=== PATIENT | female | born 1965 | race Caucasian/White ===

== ENCOUNTER 2018-10-18 16:00 | Inpatient (IN) | payer SELFPAY ==
[~2018-10-18] VITALS: Ht 147.3 cm; Wt 40.3 kg
[2018-10-18] MEDS ORDERED: normal saline 1000ML IV soln IVB ONE (20:30)
[2018-10-18] MEDS ORDERED: gabapentin 400mg capsule PO ONE (20:30)
[2018-10-18] MEDS ORDERED: morphine 4 MG/ML inj SYRINge IV ONE (21:20)
[2018-10-18 21:24] LABS: BASOPHILS % (AUTO) 0.1 % (0-1); EOSINOPHILS # (AUTO) 0.1 X10'3 (0-0.9); EOSINOPHILS % (AUTO) 1.6 % (0-6); HEMATOCRIT 39.9 % (35.0-45.0); HEMOGLOBIN 13.5 g/dl (12.0-16.0); LYMPHOCYTES # (AUTO) 2.5 X10'3 (1.1-4.8); LYMPHOCYTES % (AUTO) 33.7 % (21-51); MEAN CORPUSCULAR HEMOGLOBIN 28.6 PG (27.0-31.0); MEAN CORPUSCULAR HGB CONC 33.9 % (33.0-36.5); MEAN CORPUSCULAR VOLUME 84.4 FL (78-98); MONOCYTES # (AUTO) 0.5 X10'3 (0-0.9); MONOCYTES % (AUTO) 6.4 % (2-12); NEUTROPHILS # (AUTO) 4.4 X10'3 (1.8-7.7); NEUTROPHILS % (AUTO) 58.2 % (42-75); PLATELET COUNT 346 X10'3 (140-440); RED BLOOD COUNT 4.72 X10'6 (4.20-5.60); RED CELL DISTRIBUTION WIDTH 12.9 % (11.5-14.5); WHITE BLOOD COUNT 7.5 X10'3 (4.5-11.0)
[2018-10-18 21:43] LABS: ALANINE AMINOTRANSFERASE 34 U/L (12-78); ALBUMIN 4.2 G/DL (3.4-5.0); ALKALINE PHOSPHATASE 111 IU/L (46-116); ANION GAP 14 (8-16); ASPARTATE AMINO TRANSFERASE 19 U/L (10-37); BILIRUBIN,TOTAL 0.4 MG/DL (0.1-1.0); BLOOD UREA NITROGEN 12 MG/DL (7-18); BUN/CREATININE RATIO 22.6 (6.6-38.0); CALCIUM 9.3 MG/DL (8.5-10.1); CHLORIDE 104 MMOL/L (99-107); CREATININE 0.53 MG/DL (0.40-0.90); GLUCOSE 82 MG/DL (70-104); POTASSIUM 3.4 MMOL/L (3.5-5.1); SODIUM 142 MMOL/L (135-145); TOTAL CARBON DIOXIDE 23.8 MMOL/L (24-32); TOTAL PROTEIN 8.4 G/DL (6.4-8.2); eGFR > 90 ML/MIN
--- NOTE | 2018-10-18 22:14 | NUR ---
Patient's pain is nearly gone and patient reports feeling quite comfortable. Dr. Lowery notified of update and I spoke to her regarding the patient's blood pressure. Patient's blood pressure is always high and she took her medication today, which she cannot remember the name for. Dr. Lowery states we will monitor and wait for results of CT.
[2018-10-18] MEDS ORDERED: iohexol 350MG/ML 100ml bottle IV ONE (22:16)
[2018-10-18] MEDS ORDERED: GABA-532 PO (22:25)
[2018-10-19] MEDS ORDERED: piperacillin/tazo 3.375gm/50ml 50 ML IV ONE (01:00)
[2018-10-19] MEDS ORDERED: LISI-600 PO (01:02)
[2018-10-19] MEDS ORDERED: morphine 4 MG/ML inj SYRINge IV ONE ×2 (01:10→11:50)
[2018-10-19] MEDS ORDERED: potassium cl 20mEq in 1/2 NS 1,000 ML IV SCH (01:54)
[2018-10-19] MEDS ORDERED: diphenhydrAMINE 50 mg/ml inj IV PRN (01:55)
[2018-10-19] MEDS ORDERED: diphenhydrAMINE 25mg capsule PO PRN (01:55)
[2018-10-19] MEDS ORDERED: mag hydrox/Alum hydrox/simeth 30ml oral suspension PO PRN (01:55)
[2018-10-19] MEDS ORDERED: magnesium hydroxide 30ml (MOM) UD suspension PO PRN (01:55)
[2018-10-19] MEDS ORDERED: ondansetron/PF 4mg/2ml inj IV PRN (01:55)
[2018-10-19] MEDS ORDERED: bisacodyl 10mg suppository rectal RC PRN (01:55)
[2018-10-19] MEDS ORDERED: acetaminophen 650mg rectal suppository RC PRN (01:55)
[2018-10-19] MEDS ORDERED: acetaminophen 325mg tablet PO PRN (01:55)
[2018-10-19] MEDS ORDERED: metoclopramide 5 mg/ml inj IV PRN (01:55)
[2018-10-19] MEDS ORDERED: HYDROcodone/acetaminophen 5mg/325mg tablet PO PRN (01:55)
[2018-10-19] MEDS ORDERED: hydrALAZINE 20mg/ml inj. IV PRN (02:00)
[2018-10-19 02:30] VITALS: BP 174/79
[2018-10-19 02:42] LABS: CREATINE KINASE 59 U/L (26-192); LIPASE 712 U/L (73-393); MAGNESIUM 2.2 MG/DL (1.5-2.4); PHOSPHORUS 3.1 MG/DL (2.3-4.5)
--- NOTE | 2018-10-19 03:11 | NUR ---
pt arrived to room 4012b at 0200 from er. pt ambulated to bed without difficulties. pt has been oriented to the room. vss. received report from gianni Sarmiento prior to pt's arrival.
[2018-10-19] MEDS: morphine 4 MG/ML inj SYRINge IV PRN ×2 (05:22→09:09)
[2018-10-19 06:00] VITALS: BP 140/71
--- NOTE | 2018-10-19 06:23 | NUR ---
Problems reprioritized. Patient report given, questions answered & plan of care reviewed with SONIDO BACON.
[2018-10-19] MEDS ORDERED: pantoprazole 40 MG vial IV SCH (08:00)
[2018-10-19] MEDS ORDERED: vancomycin/NS 1 GM ADD-VANTAGE 250 ML IV SCH (08:00)
[2018-10-19] MEDS: docusate sod 100mg capsule PO SCH ×2 (08:00→19:31)
[2018-10-19] MEDS ORDERED: VANCOMYCIN 750MG IV in NS 250 ML IV SCH (08:00)
[2018-10-19] MEDS: lisinopril 5mg tablet PO SCH (08:23)
[2018-10-19 10:00] VITALS: BP 139/73
[2018-10-19] MEDS ORDERED: pneumococcal 23-VAL P-sac vacc 25 mcg/0.5ml vial IMVAC ONE (10:00)
[2018-10-19] MEDS ORDERED: morphine 4 MG/ML inj SYRINge IV PRN (11:50)
[2018-10-19] MEDS ORDERED: piperacillin/tazo 4.5gm/100ml 100 ML IV SCH (13:00)
[2018-10-19] MEDS ORDERED: diatrozoate meglu/diatrozoate sod (37% iodine) 120ML oral solution ONE (14:17)
--- NOTE | 2018-10-19 16:25 | NUR ---
PAGER ID: [phone] MESSAGE: [id number] RE: [id number] ESOPHAGRAM REPORT IS BACK.
[2018-10-19] MEDS ORDERED: LORazepam 2 mg/ml vial IV ONE (17:00)
--- NOTE | 2018-10-19 17:00 | NUR ---
adminstered morphine 2mg at 1610 didn't save, did unscheduled administration.
--- NOTE | 2018-10-19 18:12 | NUR ---
Problems reprioritized. Patient report given, questions answered & plan of care reviewed with MASON HEAD.
--- NOTE | 2018-10-19 18:24 | NUR ---
Problems reprioritized. Patient report given, questions answered & plan of care reviewed with DIXON HEAD.
--- NOTE | 2018-10-19 18:40 | NUR ---
Patient in room [facility]TH[facility] 4012. I have received report from Piedad HEAD and had the opportunity to ask questions and assume patient care. Patient returned from MRI, fluids reinitiated and tele placed. Will continue to monitor. Family at bedside.
[2018-10-19 18:44] VITALS: BP 156/80
[2018-10-19] MEDS ORDERED: temazepam 15mg capsule PO PRN (21:00)
[2018-10-19 22:00] VITALS: BP 141/75
[2018-10-20 06:00] VITALS: BP 141/77
--- NOTE | 2018-10-20 06:23 | NUR ---
i HAVE RECEIVED PATIENT REPORT FROM IVÁN HEAD
--- NOTE | 2018-10-20 06:30 | NUR ---
Problems reprioritized. Patient report given, questions answered & plan of care reviewed with Lawanda HEAD. Patient having labs taken, oncoming RN introduced.
[2018-10-20 06:47] LABS: BASOPHILS % (AUTO) 0.4 % (0-1); EOSINOPHILS # (AUTO) 0.1 X10'3 (0-0.9); EOSINOPHILS % (AUTO) 1.4 % (0-6); HEMATOCRIT 36.6 % (35.0-45.0); HEMOGLOBIN 12.4 g/dl (12.0-16.0); LYMPHOCYTES # (AUTO) 1.3 X10'3 (1.1-4.8); LYMPHOCYTES % (AUTO) 19.4 % (21-51); MEAN CORPUSCULAR HEMOGLOBIN 28.6 PG (27.0-31.0); MEAN CORPUSCULAR HGB CONC 33.8 % (33.0-36.5); MEAN CORPUSCULAR VOLUME 84.4 FL (78-98); MONOCYTES # (AUTO) 0.4 X10'3 (0-0.9); MONOCYTES % (AUTO) 5.4 % (2-12); NEUTROPHILS # (AUTO) 4.8 X10'3 (1.8-7.7); NEUTROPHILS % (AUTO) 73.4 % (42-75); PLATELET COUNT 325 X10'3 (140-440); RED BLOOD COUNT 4.34 X10'6 (4.20-5.60); RED CELL DISTRIBUTION WIDTH 12.6 % (11.5-14.5); WHITE BLOOD COUNT 6.5 X10'3 (4.5-11.0)
[2018-10-20] MEDS: docusate sod 100mg capsule PO SCH (08:00)
[2018-10-20 08:08] LABS: ALANINE AMINOTRANSFERASE 28 U/L (12-78); ALBUMIN 3.4 G/DL (3.4-5.0); ALBUMIN/GLOBULIN RATIO 0.9 (1.1-1.5); ALKALINE PHOSPHATASE 79 IU/L (46-116); ASPARTATE AMINO TRANSFERASE 17 U/L (10-37); BILIRUBIN,TOTAL 0.6 MG/DL (0.1-1.0); BLOOD UREA NITROGEN 14 MG/DL (7-18); BUN/CREATININE RATIO 23.7 (6.6-38.0); CALCIUM 8.4 MG/DL (8.5-10.1); CREATININE 0.59 MG/DL (0.40-0.90); GLUCOSE 74 MG/DL (70-104); TOTAL CARBON DIOXIDE 22.5 MMOL/L (24-32); TOTAL PROTEIN 7.1 G/DL (6.4-8.2); eGFR > 90 ML/MIN
[2018-10-20] MEDS: lisinopril 5mg tablet PO SCH (08:15)
[2018-10-20] MEDS: HYDROmorphone 1 mg/ml syringe IV PRN ×2 (08:22→13:13)
[2018-10-20 09:22] LABS: ANION GAP 14 (8-16); CHLORIDE 105 MMOL/L (99-107); POTASSIUM 3.9 MMOL/L (3.5-5.1); SODIUM 141 MMOL/L (135-145)
[2018-10-20 10:00] VITALS: BP 137/83
[2018-10-20] MEDS ORDERED: TRAM50TA2 PO (15:42)
[2018-10-20] MEDS ORDERED: GABA-532 PO (15:42)
--- NOTE | 2018-10-20 16:15 | NUR ---
Patient discharged with paper copy of prescriptions given to patient. Patient told to follow up with back surgeon per Dr. Brown.
[2018-10-20] MEDS ORDERED: VANCOMYCIN LEVEL IV ONE (19:30)
== END 2018-10-20 16:30 | disposition home or self-care (01) | DRG 74 ==
LOC: ER 16:01 → ED HOLD 10-19 01:54 → ORTHO 4S 10-19 02:25 → CMPBEDREQ 10-19 03:18 → ORTHO 4S 10-19 08:20
PROVIDERS: ADMIT Family Medicine; ATTEND Hospitalist
PROC: B3281ZZ Computerized Tomography (CT Scan) of Bilateral Internal Carotid Arteries using Low Osmolar Contrast (ICD-10-PCS; principal; 2018-10-19)
PROC: B32G1ZZ Computerized Tomography (CT Scan) of Bilateral Vertebral Arteries using Low Osmolar Contrast (ICD-10-PCS; 2018-10-19)
DX: M79.2 Neuralgia and neuritis, unspecified (principal); I16.1 Hypertensive emergency; Z68.1 Body mass index [BMI] 19.9 or less, adult; E87.6 Hypokalemia; I10 Essential (primary) hypertension; R63.6 Underweight; R53.1 Weakness; M25.78 Osteophyte, vertebrae; Z79.899 Other long term (current) drug therapy
CPT/HCPCS: 36415; 70496; 70498; 71045; 72141; 72146; 74220; 80053; 82550; 83605; 83690; 83735; 83880; 84100; 84443; 85025; 87040; 87070; 90732; 93005; 96361; 96374; 96376; 99285; C9113; G0378; J0360; J1170; J2060; J2270; J2543; J3370; J7030; Q9963; Q9967